=== PATIENT | female | born 1980 | race Caucasian/White ===

== ENCOUNTER 2020-03-01 01:06 | Emergency (ER) | payer SELFPAY ==
--- NOTE | 2020-03-01 01:08 | ED Physician Documentation ---
History of Present Illness - Stated complaint Stated Complaint: CP/SOA - History obtained from History obtained from: Patient (Patient is a 39-year-old female who recently moved to the area who presents with shortness of breath without hemoptysis or syncope she denies any chest pain she reports a few weeks ago she went to the separate hospital where they did a CT angiogram of the chest with IV contrast to rule out a pulmonary embolism patient denies any history of pulmonary embolism or DVT denies any lower extremity swelling denies any trauma, is on nexplanon, denies stasis or any recent trauma. She denies any family history of sudden in young age of the, father, brother sister. Denies any chest pain or fevers or rashes today.She reports recently she was diagnosed with bronchitis and repeat denies any symptoms today to suggest pneumonia or bronchitis.Denies any history of reactive airway disease.) Review of Systems Constitutional: reports: Reviewed and negative Eyes: reports: Reviewed and negative Ears: reports: Reviewed and negative Nose: reports: Reviewed and negative Throat: reports: Reviewed and negative Cardiac: reports: Palpitations Respiratory: reports: Dyspnea GI: reports: Reviewed and negative : reports: Reviewed and negative Skin: reports: Reviewed and negative Musculoskeletal: reports: Reviewed and negative Neurologic: reports: Reviewed and negative Psychiatric: reports: Reviewed and negative Endocrine: reports: Reviewed and negative Immunocompromised: reports: Reviewed and negative PD PAST MEDICAL HISTORY - Present Medications Home Medications: Ambulatory Orders Medication Instructions Recorded Confirmed Albuterol Sulfate [Albuterol 2 puffs IH Q4HR PRN 03/01/20 03/01/20 Sulfate Hfa] Clonidine HCl [Clonidine HCl ER] 0.1 mg PO TID 03/01/20 03/01/20 Etonogestrel [Nexplanon] 03/01/20 Gabapentin 600 mg PO TID 03/01/20 03/01/20 - Allergies Allergies/Adverse Reactions: Allergies Allergy/AdvReac Type Severity Reaction Status Date / Time atomoxetine [From Strattera] Allergy Edema Verified 03/01/20 02:05 cephalexin [From Keflex] Allergy Edema Verified 03/01/20 02:04 erythromycin base Allergy Edema Verified 03/01/20 02:05 [From E-Mycin] esomeprazole [From Nexium] Allergy Hives Verified 03/01/20 02:06 PD ED PE NORMAL - Vitals Vital signs reviewed: Yes - General General: Alert and oriented X 3, No acute distress, Well developed/nourished - HEENT HEENT: Atraumatic, PERRL, Moist mucous membranes - Neck Neck: Supple, no meningeal sign, No adenopathy, No JVD, No bruit - Cardiac Cardiac: RRR, No murmur, Strong equal pulses - Respiratory Respiratory: No respiratory distress, Clear bilaterally - Abdomen Abdomen: Normal bowel sounds, Soft, Non tender, Non distended - Derm Derm: Warm and dry - Extremities Extremities: No deformity, No tenderness to palpate, Normal ROM s pain, No edema, No calf tenderness / cord - Neuro Neuro: Alert and oriented X 3, survey analyst 2-12 intact, No motor deficit, No sensory deficit, Normal speech - Psych Psych: Normal mood, Normal affect Results - Vitals Vitals: Vital Signs - 24 hr 03/01/20 03/01/20 01:10 02:08 Temperature 36.3 C L Heart Rate 79 75 Respiratory 17 16 Rate Blood Pressure 156/81 H 161/80 H O2 Saturation 98 98 Oxygen O2 Source Room air - EKG (time done) 01:09 Rate: Other (no stemi) - Labs Labs: Laboratory Tests 03/01/20 03/01/20 03/01/20 01:50 01:50 01:50 WBC 11.2 H RBC 4.59 Hgb 13.9 Hct 41.7 MCV 90.8 MCH 30.3 MCHC 33.3 RDW 13.7 Plt Count 186 MPV 9.6 Neut # (Auto) 7.6 H Lymph # (Auto) 2.2 [place] # (Auto) 1.0 Eos # (Auto) 0.3 Baso # (Auto) 0.0 Absolute Nucleated RBC 0.00 Nucleated RBC % 0.0 Sodium 137 Potassium 3.5 Chloride 108 Carbon Dioxide 23 Anion Gap 6.0 BUN 13 Creatinine 0.6 Estimated GFR (MDRD) 111 Glucose 116 H Calcium 8.8 Total Bilirubin 0.5 AST 34 ALT 84 H Alkaline Phosphatase 67 Troponin I High Sens 3.8 Total Protein 6.9 Albumin 3.6 Globulin 3.3 Albumin/Globulin Ratio 1.1 Lipase 43 PD MEDICAL DECISION MAKING - ED course Complexity details: considered differential (I did recommend that we repeat a CT Of the chest to rule out pulmonary embolism however the patient's refusing she reports that she recently had 1 and would not like any advanced imaging today I explained her that we possibly could be missing a pulmonary embolism that was not seen previously given the fact that she is on Nexplanon. The patient's not tachycardic she is not having any hemoptysis or lower extremity swelling denies any history of pulmonary embolism or DVT she does have risk factors to include her her BMI as well as hypertension her EKG shows no signs of STEMI her troponin is -2 view chest x-ray is negative. Given the evidence of a unremarkable EKG, negative troponin negative two-view chest x-ray and a recent CT of the chest th at ruled out pulmonary embolism still unsure the patient's etiology the patient would like to be discharged home at this time which I feel is reasonable and she should establish care with a primary care provider or return to the emergency department any concerns.) Departure - Departure Disposition: 01 Home, Self Care Clinical Impression: SOB (shortness of breath) Chest pain Qualifiers: Chest pain type: unspecified Qualified Code(s): R07.9 - Chest pain, unspecified Condition: Stable Instructions: ED Chest Pain Atypical Unkn Cause Follow-Up: your, doctor [Other] - Tomorrow
[2020-03-01 01:58] LABS: BASOPHILS % (AUTO) 0.3 %; EOSINOPHILS # (AUTO) 0.3 10^3/uL (0.0-0.7); EOSINOPHILS % (AUTO) 2.7 %; HGB - HEMOGLOBIN 13.9 g/dL (12.0-16.0); LYMPHOCYTES # (AUTO) 2.2 10^3/uL (1.5-3.5); LYMPHOCYTES % (AUTO) 19.8 %; MEAN CORPUSCULAR HEMOGLOBIN 30.3 pg (27.0-31.0); MEAN CORPUSCULAR HGB CONC 33.3 g/dL (32.0-36.0); MEAN CORPUSCULAR VOLUME 90.8 fL (81.0-99.0); MEAN PLATELET VOLUME 9.6 fL (7.9-10.8); MONOCYTES % (AUTO) 9.3 %; NEUTROPHILS # (AUTO) 7.6 10^3/uL (1.5-6.6); NEUTROPHILS % (AUTO) 67.5 %; PLT - PLATELET COUNT 186 10^3/uL (130-450); RED BLOOD COUNT 4.59 10^6/uL (4.20-5.40); RED CELL DISTRIBUTION WIDTH 13.7 % (12.0-15.0); WHITE BLOOD COUNT 11.2 x10^3/uL (4.8-10.8)
[2020-03-01 02:06] LABS: ALBUMIN 3.6 g/dL (3.2-5.5); ALBUMIN/GLOBULIN RATIO 1.1 (1.0-2.2); BILIRUBIN,TOTAL 0.5 mg/dL (0.2-1.0); CALCIUM 8.8 mg/dL (8.5-10.3); CREATININE 0.6 mg/dL (0.4-1.0); TOTAL PROTEIN 6.9 g/dL (6.7-8.2)
--- NOTE | 2020-03-01 02:47 | XRAY Report ---
Reason: cp Procedure Date: 03/01/2020 Accession Number: [id number] / [id number] Procedure: XR - Chest 2 View X-Ray CPT Code: 18065 Final Report FULL RESULT: EXAM: CHEST RADIOGRAPHY EXAM DATE: 03/01/2020 02:21 AM. CLINICAL HISTORY: Chest pain COMPARISON: None. TECHNIQUE: 2 views. FINDINGS: Lungs/Pleura: No focal opacities evident. No pleural effusion. No pneumothorax. Normal volumes. Mediastinum: Heart and mediastinal contours are unremarkable. Other: None. IMPRESSION: Normal 2-view chest radiography. [facility]
[2020-03-01 03:03] VITALS: BP 112/60
== END 2020-03-01 03:08 | disposition home or self-care (01) ==
LOC: ED 01:06
DX: R06.02 Shortness of breath (principal); R07.9 Chest pain, unspecified; I10 Essential (primary) hypertension
CPT/HCPCS: 36415; 71046; 80053; 83690; 84484; 85025; 93005; 99284

== ENCOUNTER 2020-03-10 05:00 | Emergency (ER) | payer SELFPAY ==
--- NOTE | 2020-03-10 05:06 | ED Physician Documentation ---
PD HPI ABD PAIN - Stated complaint Stated Complaint: V/D/ABD PX - History obtained from History obtained from: Patient - History of Present Illness Timing - onset: Last night Timing - details: Gradual onset, Intermittant, Waxing and waning Pain level max: 6 Pain level now: 3 Quality: Cramping Location: All over / everywhere Improved by: Other (no ameliorating factors) Worsened by: Eating Associated symptoms: Nausea, Vomiting, Diarrhea. No: Fever, Constipation, Loss of appetite Similar symptoms before: Other (similar, but milder, symptoms 2 weeks ago) Recently seen: Emergency Dept (T+R from this ED 9 days ago for chest pain after unremarkable w/u) - Additional information Additional information: c/o episodic diarrhea associated with generalized abdominal cramping. nausea and vomiting although tolerating PO (PO intake exacerbates the diarrhea and abdominal cramping but not the n/v). Review of Systems Constitutional: reports: Reviewed and negative Cardiac: reports: Reviewed and negative Respiratory: reports: Reviewed and negative GI: reports: Abdominal Pain, Nausea, Vomiting, Diarrhea : denies: Dysuria, Frequency, Now EGA Neurologic: reports: Reviewed and negative PD PAST MEDICAL HISTORY - Past Medical History Cardiovascular: Hypertension Respiratory: Asthma Psych: Anxiety Other Past Medical History: tim-danlos - Past Surgical History Past Surgical History: Yes General: Cholecystectomy HEENT: Tonsil/Adenoidectomy - Present Medications Home Medications: Ambulatory Orders Medication Instructions Recorded Confirmed Albuterol Sulfate [Albuterol 2 puffs IH Q4HR PRN 03/01/20 03/01/20 Sulfate Hfa] Clonidine HCl [Clonidine HCl ER] 0.1 mg PO TID 03/01/20 03/01/20 Etonogestrel [Nexplanon] 03/01/20 Gabapentin 600 mg PO TID 03/01/20 03/01/20 Dicyclomine [Bentyl] 20 mg PO QID PRN #14 capsule 03/10/20 - Allergies Allergies/Adverse Reactions: Allergies Allergy/AdvReac Type Severity Reaction Status Date / Time atomoxetine [From Strattera] Allergy Edema Verified 03/10/20 05:08 cephalexin [From Keflex] Allergy Edema Verified 03/10/20 05:08 erythromycin base Allergy Edema Verified 03/10/20 05:08 [From E-Mycin] esomeprazole [From Nexium] Allergy Hives Verified 03/10/20 05:08 - Social History Does the pt smoke?: Yes Smoking Status: Current every day smoker Does the pt drink ETOH?: No Does the pt have substance abuse?: No - Immunizations Immunizations are current?: No Immunizations: TDAP current <10years - POLST Patient has POLST: No PD ED PE NORMAL - Vitals Vital signs reviewed: Yes - General General: Alert and oriented X 3, No acute distress, Well developed/nourished - HEENT HEENT: Moist mucous membranes - Neck Neck: Supple, no meningeal sign - Cardiac Cardiac: RRR, No murmur - Respiratory Respiratory: No respiratory distress, Clear bilaterally - Abdomen Abdomen: Normal bowel sounds, Soft, Non tender, Non distended - Derm Derm: Normal color, Warm and dry, Other (multiple faint echymoses on abdomen and BLE (patient says this is not unusual for her and attributes it to her EDS)) Results - Vitals Vitals: Vital Signs - 24 hr 03/10/20 03/10/20 05:06 07:56 Temperature 36.4 C L Heart Rate 91 74 Respiratory 20 20 Rate Blood Pressure 146/103 H 125/59 L O2 Saturation 97 100 Oxygen O2 Source Room air - Labs Labs: Laboratory Tests 03/10/20 03/10/20 03/10/20 05:50 05:50 05:50 WBC 10.9 H RBC 4.78 Hgb 14.6 Hct 43.7 MCV 91.4 MCH 30.5 MCHC 33.4 RDW 13.4 Plt Count 190 MPV 9.7 Neut # (Auto) 8.6 H Lymph # (Auto) 1.1 L [place] # (Auto) 0.8 Eos # (Auto) 0.3 Baso # (Auto) 0.0 Absolute Nucleated RBC 0.00 Nucleated RBC % 0.0 PT 12.7 H INR 1.1 APTT 28.8 Sodium 140 Potassium 3.2 L Chloride 105 Carbon Dioxide 27 Anion Gap 8.0 BUN 10 Creatinine 0.7 Estimated GFR (MDRD) 93 Glucose 106 H Calcium 9.3 Total Bilirubin 0.6 AST 41 ALT 76 H Alkaline Phosphatase 73 Total Protein 7.7 Albumin 3.9 Globulin 3.8 Albumin/Globulin Ratio 1.0 Lipase 28 Urine Color Urine Clarity Urine pH Ur Specific [place] Urine Protein Urine Glucose (UA) Urine Ketones Urine Occult Blood Urine Nitrite Urine Bilirubin Urine Urobilinogen Ur Leukocyte Esterase Urine RBC Urine WBC Ur Squamous Epith Cells Urine Bacteria Ur Microscopic Review Urine Culture Comments Urine HCG, Qual 03/10/20 06:05 WBC RBC Hgb Hct MCV MCH MCHC RDW Plt Count MPV Neut # (Auto) Lymph # (Auto) [place] # (Auto) Eos # (Auto) Baso # (Auto) Absolute Nucleated RBC Nucleated RBC % PT INR APTT Sodium Potassium Chloride Carbon Dioxide Anion Gap BUN Creatinine Estimated GFR (MDRD) Glucose Calcium Total Bilirubin AST ALT Alkaline Phosphatase Total Protein Albumin Globulin Albumin/Globulin Ratio Lipase Urine Color YELLOW Urine Clarity CLEAR Urine pH 6.5 Ur Specific [place] 1.020 Urine Protein NEGATIVE Urine Glucose (UA) NEGATIVE Urine Ketones NEGATIVE Urine Occult Blood SMALL H Urine Nitrite NEGATIVE Urine Bilirubin NEGATIVE Urine Urobilinogen 0.2 (NORMAL) Ur Leukocyte Esterase NEGATIVE Urine RBC 0-5 Urine WBC 0-3 Ur Squamous Epith Cells MOD Squamous H Urine Bacteria Rare Ur Microscopic Review INDICATED Urine Culture Comments NOT INDICATED Urine HCG, Qual NEGATIVE - Rads (name of study) CT A/P Radiology: Prelim report reviewed, See rad report PD MEDICAL DECISION MAKING - ED course Complexity details: reviewed results, re-evaluated patient, considered differential, d/w patient ED course: CT s/o inflammation of terminal ileum. afebrile, reassuring blood tests, nontender on exam. she appears uncomfortable at times during ED stay, but NAD between episodes of pain. she declines analgesics, particularly opiates. she also declines antidiarrheals although cramping abdominal pain and diarrhea constitute her chief complaint. she provides sound reasoning in that she has immodium at home but she also is concerned that antidiarrheals might complicate her course if she has infectious diarrhea or IBD. she says she is comfortable with d/c home and will return if worse Departure - Departure Disposition: 01 Home, Self Care Clinical Impression: Enteritis Condition: Good Instructions: ED Food Poison Or Gastroenteritis Prescriptions: Dicyclomine [Bentyl] 20 mg PO QID PRN #14 capsule PRN Reason: Abdominal Pain Discharge Date/Time: 03/10/20 08:32
[2020-03-10] MEDS ORDERED: SODIUM CHLORIDE 0.9% 1,000 ML IV STA (05:46)
[2020-03-10] MEDS ORDERED: ONDANSETRON 4 MG/2 ML VIAL IVP STA (05:46)
[2020-03-10 05:56] LABS: BASOPHILS % (AUTO) 0.2 %; EOSINOPHILS # (AUTO) 0.3 10^3/uL (0.0-0.7); EOSINOPHILS % (AUTO) 2.9 %; HGB - HEMOGLOBIN 14.6 g/dL (12.0-16.0); LYMPHOCYTES # (AUTO) 1.1 10^3/uL (1.5-3.5); LYMPHOCYTES % (AUTO) 10.2 %; MEAN CORPUSCULAR HEMOGLOBIN 30.5 pg (27.0-31.0); MEAN CORPUSCULAR HGB CONC 33.4 g/dL (32.0-36.0); MEAN CORPUSCULAR VOLUME 91.4 fL (81.0-99.0); MEAN PLATELET VOLUME 9.7 fL (7.9-10.8); MONOCYTES # (AUTO) 0.8 10^3/uL (0.0-1.0); MONOCYTES % (AUTO) 6.9 %; NEUTROPHILS # (AUTO) 8.6 10^3/uL (1.5-6.6); NEUTROPHILS % (AUTO) 79.2 %; PLT - PLATELET COUNT 190 10^3/uL (130-450); RED BLOOD COUNT 4.78 10^6/uL (4.20-5.40); RED CELL DISTRIBUTION WIDTH 13.4 % (12.0-15.0); WHITE BLOOD COUNT 10.9 x10^3/uL (4.8-10.8)
[2020-03-10] MEDS ORDERED: DICYCLOMINE 10 MG CAPSULE PO STA (05:59)
[2020-03-10 06:02] LABS: INR 1.1 (0.8-1.2); PT - PROTHROMBIN TIME 12.7 secs (9.9-12.6)
[2020-03-10 06:09] LABS: ALBUMIN 3.9 g/dL (3.2-5.5); BILIRUBIN,TOTAL 0.6 mg/dL (0.2-1.0); CALCIUM 9.3 mg/dL (8.5-10.3); CREATININE 0.7 mg/dL (0.4-1.0); TOTAL PROTEIN 7.7 g/dL (6.7-8.2)
[2020-03-10 06:10] LABS: PARTIAL THROMBOPLASTIN TIME 28.8 secs (24.9-33.3)
[2020-03-10] MEDS ORDERED: IOVERSOL 320 100 ML VIAL IVP ONE ×2 (06:24→11:16)
[2020-03-10 06:29] LABS: BILIRUBIN,URINE NEGATIVE (NEGATIVE); GLUCOSE, URINE (UA) NEGATIVE (NEGATIVE); KETONES,URINE (UA) NEGATIVE (NEGATIVE); LEUKOCYTE ESTERASE, URINE NEGATIVE (NEGATIVE); NITRITE,URINE NEGATIVE (NEGATIVE); OCCULT BLOOD,URINE SMALL (NEGATIVE); PH,URINE 6.5 PH (5.0-7.5); PROTEIN,URINE NEGATIVE (NEGATIVE); UROBILINOGEN,URINE 0.2 (NORMAL) E.U./dL (NORMAL)
[2020-03-10 06:37] LABS: BACTERIA,URINE Rare /HPF (None Seen); CLARITY,URINE CLEAR (CLEAR); HCG UR QUAL NEGATIVE; RBC,URINE 0-5 /HPF (0-5); SQUAMOUS EPITHELIAL CELL,UR MOD Squamous (<= Few)
--- NOTE | 2020-03-10 07:41 | CT Report ---
Reason: abd. pain Procedure Date: 03/10/2020 Accession Number: [id number] / [id number] Procedure: CT - Abdomen/Pelvis W CPT Code: Final Report FULL RESULT: EXAM: CT ABDOMEN AND PELVIS EXAM DATE: 03/10/2020 06:56 AM. CLINICAL HISTORY: Abdominal pain. COMPARISONS: CHEST 2 VIEW 03/01/2020 1:41 AM. TECHNIQUE: Routine helical CT imaging was performed through the abdomen and pelvis. IV contrast: 100 cc Optiray 320. Enteric contrast: No. Reconstructions: Coronal and sagittal. In accordance with CT protocol optimization, one or more of the following dose reduction techniques were utilized for this exam: automated exposure control, adjustment of mA and/or KV based on patient size, or use of iterative reconstructive technique. FINDINGS: Lung Bases: Unremarkable. Liver: Normal. No masses. Gallbladder/Bile Ducts: The gallbladder is surgically absent. No biliary dilatation. Spleen: Normal. Pancreas: Normal. Adrenal Glands: Normal. Kidneys: Normal. No masses or hydronephrosis. Peritoneal Cavity/Bowel: No free fluid, free air or adenopathy. No dilated loops of bowel or abnormal colonic stool burden. There is circumferential bowel wall thickening of the terminal ileum with mild adjacent fat stranding. The proximal small bowel and colon are unremarkable. The appendix is well visualized and normal (series 5, image 35). Pelvic Organs: Normal. The visualized pelvic organs are within normal limits. The urinary bladder is decompressed, limiting evaluation. Vasculature: No aneurysms or other significant abnormality. Bones: No acute osseous abnormality or bone lesion. There are mild degenerative disk changes of the lower thoracic and lumbar spine. Other: There is a small fat-containing umbilical hernia. IMPRESSION: 1. Circumferential bowel wall thickening of the terminal ileum with adjacent fat stranding. Findings are suggestive of infectious or inflammatory enteritis, such as Crohn's disease. 2. Otherwise unremarkable CT of the abdomen and pelvis. The appendix is normal. The gallbladder is surgically absent. [facility]
[2020-03-10 07:59] VITALS: BP 125/59
== END 2020-03-10 08:32 | disposition home or self-care (01) ==
LOC: ED 05:00
DX: K52.9 Noninfective gastroenteritis and colitis, unspecified (principal); I10 Essential (primary) hypertension; Q79.60 Ehlers-Danlos syndrome, unspecified; F17.200 Nicotine dependence, unspecified, uncomplicated
CPT/HCPCS: 36415; 74177; 80053; 81001; 81025; 83690; 85025; 85610; 85730; 96361; 96374; 99284; A9270; Q9967; 81003; 87086